=== PATIENT | male | born 1980 | race Hispanic/Latino ===

== ENCOUNTER 2022-01-27 08:03 | Emergency (ER) | payer OTHER ==
[~2022-01-27] VITALS: Ht 167.6 cm; Wt 77.1 kg
[2022-01-27 08:29] VITALS: BP 112/74
[2022-01-27 08:52] LABS: APPEARANCE,URINE Clear (CLEAR); BILIRUBIN,URINE Negative (NEGATIVE); COLOR,URINE Yellow (YELLOW); GLUCOSE, URINE (UA) Negative (NEGATIVE); KETONES,URINE Negative (NEGATIVE); LEUKOCYTE ESTERASE ,URINE Negative (NEGATIVE); NITRATE,URINE Negative (NEGATIVE); OCCULT BLOOD,URINE Negative (NEGATIVE); PROTEIN,URINE Negative (NEGATIVE); UROBILINOGEN,URINE 0.2 mg/dL (0.2-1.0)
[2022-01-27 09:03] LABS: AMPHET/METH SCREEN,URINE NEGATIVE (NEGATIVE); BARBITURATE SCREEN, URINE NEGATIVE (NEGATIVE); BENZODIAZEPINES SCREEN,URINE NEGATIVE (NEGATIVE); CANNABINOID SCREEN,URINE NEGATIVE (NEGATIVE); COCAINE SCREEN,URINE NEGATIVE (NEGATIVE); OPIATE SCREEN,URINE NEGATIVE (NEGATIVE); PHENCYCLIDINE SCREEN,URINE NEGATIVE (NEGATIVE)
== END 2022-01-27 08:42 | disposition home or self-care (01) ==
LOC: EDH 08:03
DX: F41.9 Anxiety disorder, unspecified (principal)
CPT/HCPCS: 80305; 81003

== ENCOUNTER 2024-08-12 09:55 | Observation (INO) | payer OTHER ==
[2024-08-10 14:34] LABS: BASOPHILS # (AUTO) 0.13 K/uL (0.00-0.20); BASOPHILS % (AUTO) 1.1 % (0.0-5.0); EOSINOPHILS % (AUTO) 2.6 % (0.0-8.0); HEMATOCRIT 48.9 % (42-54); IMMATURE GRANULOCYTE ABSOLUTE 0.11 K/uL (0-1); LYMPHOCYTES # (AUTO) 3.1 K/uL (1.0-4.8); LYMPHOCYTES % (AUTO) 27.2 % (21.0-51.0); MEAN CORPUSCULAR HEMOGLOBIN 29.7 pg (27.0-33.0); MEAN CORPUSCULAR HGB CONC 32.5 g/dL (32.0-36.0); MEAN CORPUSCULAR VOLUME 91.4 fL (79-99); MONOCYTES % (AUTO) 8.8 % (3.0-13.0); NEUTROPHILS # (AUTO) 6.8 K/uL (1.8-7.7); NEUTROPHILS % (AUTO) 59.3 % (40.0-77.0); PLATELET COUNT (AUTO) 173 K/uL (130-400); RED BLOOD CELL COUNT(AUTO) 5.35 MIL/uL (4.50-6.20); RED CELL DISTRIBUTION WIDTH 14.5 % (11.0-15.5); WHITE BLOOD COUNT (AUTO) 11.4 K/uL (4.8-10.8)
[2024-08-10 14:44] LABS: CREATININE 1.1 mg/dL (0.5-1.3); POTASSIUM 4.2 mmol/L (3.5-5.1)
[2024-08-10 14:51] VITALS: BP_SYST 110; PULSE 67; RESP 14; TEMP 97.9
--- NOTE | 2024-08-11 09:06 | NUR ---
REPORT REPORTED EKG TO DR TORRES. OK TO PROCEED
--- NOTE | 2024-08-11 12:08 | EKG ---
[facility] Test Date: 2024-08-10 Test Time: 15:18:09 Pat Name: LANG BLEVINS Department: [facility] Room: Gender: Male Residential Pest Control Technician: [id number] : 1980 Requested By: CRISTINA MARTINEZ Order Number: [id number] Reading MD: Lang Davis Measurements Intervals [place] Rate: 75 P: 59 NC: 145 QRS: -46 QRSD: 81 T: 26 QT: 392 QTc: 438 Interpretive Statements Sinus rhythm Left anterior fascicular block No previous ECG available for comparison Electronically Signed On 08-11-2024 18:10:30 TITLE SUPERVISOR by Lang Davis Please click the below link to view image of tracing.
--- NOTE | 2024-08-11 13:01 | NUR ---
report reported wbc to dominique/dr peña. ok to proceed
[2024-08-12] VITALS (26 sets, daily range): BP systolic 105–153; BP diastolic 67–92; PULSE 82–116; RESP 13–20; TEMP 97.5–98.2; O2SAT 99–100
[~2024-08-12] VITALS: Ht 166.4 cm; Wt 83.9 kg
[~2024-08-12 09:55] MED LIST: HYDR-3421 PO; OMEP40CA21 PO; bupropion PO; gabapentin PO
[2024-08-12] MEDS ORDERED: BUPR-49 PO (10:37)
[2024-08-12] MEDS ORDERED: GABA-529 PO ×2 (10:37)
[2024-08-12] MEDS: ceFAZolin SODIUM 2 GM VIAL ONE (10:39)
[2024-08-12] MEDS: LACTATED RINGERS 1000ML 1,000 ML IV ONE (10:39)
[2024-08-12] MEDS ORDERED: MIDAZOLAM HCL 1 MG/ML 2ML VIAL ONE (12:03)
[2024-08-12] MEDS ORDERED: dexaMETHasone SOD PHOSPHATE 4 MG/ML 1ML VIAL ONE (12:04)
[2024-08-12] MEDS ORDERED: LIDOCAINE PF 100MG/5ML (2%) SYRINGE 5ML ONE (12:04)
[2024-08-12] MEDS ORDERED: rocuRONium bROMide 10MG/1ML 5ML VL ONE ×2 (12:04→13:56)
[2024-08-12] MEDS ORDERED: proPOFol 10 MG/ML 20ML VIAL IV ONE (12:04)
[2024-08-12] MEDS ORDERED: FENTanyl CITRate PF 50 MCG/1 ML 2ML VIAL ONE ×2 (12:04→14:32)
[2024-08-12] MEDS ORDERED: ondanSETRON 4MG INJ ONE (12:04)
[2024-08-12] MEDS: ceFAZolin SODIUM 2 GM VIAL IVPB ONE (13:30)
[2024-08-12] MEDS ORDERED: ePHEDrine SULFate 50 MG/ML AMPULE ONE (13:52)
[2024-08-12] MEDS: MEPERIDINE-PF 25 MG/ML SYG ONE (16:44)
[2024-08-12] MEDS: IpraTROPium/alBUTERol SULFATE 3 ML SOLUTION IH ONE (16:47)
[2024-08-12] MEDS ORDERED: PROCHLORPERAZINE 10MG/2ML INJ IV PRN (17:00)
[2024-08-12] MEDS ORDERED: hydroMORPHone 0.5 MG SYG (0.5MG/0.5ML) IVP PRN (17:00)
[2024-08-12] MEDS ORDERED: ondanSETRON 4MG INJ IVP PRN (17:00)
[2024-08-12] MEDS ORDERED: GABApentin 100 MG CAPSULE PO PRN (17:00)
--- NOTE | 2024-08-12 17:08 | OP ---
Operative Note: DATE OF PROCEDURE: 08/12/24 SURGEON: CRISTINA MARTINEZ MD STITCHER SET UP OPERATOR AUTOMATIC: [Please review operative record] ANESTHESIA: [General and local] ANESTHESIOLOGIST/COLLATOR OPERATOR: [Please review operative record] PREOPERATIVE DIAGNOSIS: [Diaphragmatic hernia] POSTOPERATIVE DIAGNOSIS: [6 cm diaphragmatic hernia containing incarcerated cardia and fundus of the stomach] SYNOPSIS: [6 cm diaphragmatic hernia containing incarcerated cardia fundus of the stomach, successfully reduced. Hernia primarily repaired. Reinforced with Phasix mesh. Anterior fundoplication. EGD with no air leak, successful reduction of hiatal hernia, wrapped intact.] PROCEDURE: [Robotic assisted laparoscopic hiatal hernia repair, mesh reinforcement, anterior partial fundoplication. Intraoperative EGD] ESTIMATED BLOOD LOSS: [30 cc] INDICATIONS: [Patient is a 44-year-old male with chronic heartburn. Found to have esophagitis and a moderate-size hiatal hernia on EGD. Patient unable to be weaned of PPIs. Surgical recommendation was given for higher hernia repair with fundoplication. Risks, benefits, alternatives were discussed with the patient. All questions were answered. Patient agreed to proceed with surgery.] DESCRIPTION OF PROCEDURE: [After appropriate consent was obtained, the patient was transferred to the operating room and placed in supine position on the operating table. SCDs were placed, preop antibiotics were given. Patient underwent induction of general anesthesia, endotracheal intubation. Patient was then prepped and draped in usual sterile fashion. Time-out was performed. Through a left subcostal incision, Veress needle was inserted into the peritoneal cavity. Insufflation was allowed to 12 mmHg. Through an 8 mm supraumbilical incision, 8 mm trocar and laparoscope were inserted into the peritoneal cavity using Optiview. Rest of my trocars were all placed under direct visualization. Patient was positioned in the reverse Trendelenburg at 20. Through a 5 mm incision, Tony liver retractor was placed in order to retract the left lobe of the liver anteriorly. The Abdifatah robot was docked. Upon evaluation of the diaphragmatic hiatus, there was a large diaphragmatic defect, measuring 6 cm in containing incarcerated cardia and fundus. We 1st reduced the contents by gently pooling. A few adhesive bands were divided using vessel sealer. Once fully reduce, we then focused on the diaphragmatic repair. Our dissection began by incising the peritoneum around the hiatal orifice in a avascular plane. This was performed using the vessel sealer. The right devante was identified and a plane was developed between the right devante in the right esophageal wall. The dissection was accomplished with a combination of both blunt dissection and vessel sealer dissection. On the posterior aspect of the esophageal wall, the left devante was identified and this dissection was followed towards the left devante. A few short gastrics were divided in order to fully mobilize the fundus. Once the esophagus was fully mobilized, we focused in the intra mediastinal esophageal dissection. Again this was mostly accomplished mostly with blunt and very little vessel sealer dissection. We were able to get GE junction 3 cm below the diaphragmatic hiatus. We then passed our endoscope through the mouth into the esophagus and into the stomach. With the endoscope in place, we then proceeded to perform our cruroplasty. This was achieved by approximating the left and right devante in the posterior aspect of the esophagus using two 0 V lock nonabsorbable suture in a running fashion. We also performed a anterior crural plasty using also two 0 V lock nonabsorbable suture. At the end of the crural plasty, the stomach was assessed for the returned to the peritoneal cavity and only one instrument was able to maneuver into the hiatus. We reinforced the repair using a [address] mesh in a horseshoe shape. This mesh was sutured in place using 3-0 V lock absorbable suture in a running fashion in a couple of 2-0 silk interrupted sutures. At this time we focused on creating our anterior fundoplication. The fundus was grasped from the left side and moved to the right side anteriorly to the esophagus. It was sutured to the diaphragmatic wall using 2-0 silk suture in a running fashion. Endoscopy with insufflation revealed no air leak, no stenosis through the GE junction, appropriate reduction of the hiatal hernia. At this time are hiatal hernia repair was completed. The Abdifatah robot was undocked. Final inspection revealed adequate hemostasis, no concerns for leakage. The abdomen was deflated, all instruments were removed. Counts were correct at the end of the case. Skin incisions were closed with 4-0 Monocryl suture. Dermabond was applied over the incisions. Patient tolerated the procedure well] CRISTINA MARTINEZ MD Aug 12, 2024 17:08
[2024-08-12] MEDS: acetaMINOPHEN 100 ML ONE (18:24)
[2024-08-12] MEDS: SUGAMMADEX SODIUM 200 MG/2 ML VIAL IV ONE (18:24)
[2024-08-12] MEDS: ketOROlac 30MG VIAL (30MG/ML) IV SCH (18:41)
[2024-08-12] MEDS: LACTATED RINGERS 1000ML 1,000 ML IV SCH (18:42)
[2024-08-12] MEDS: FAMOTIDINE 20MG VIAL IV SCH (21:45)
[2024-08-12] MEDS: HYDROcod/acetaMINOPHEN 7.5/325 MG 15 ML UDCUP PO PRN (21:51)
[2024-08-13 04:00] VITALS: BP 124/86; PULSE 96; RESP 19; TEMP 98
[2024-08-13 08:00] VITALS: BP 132/70; PULSE 83; RESP 17; TEMP 98.4
[2024-08-13 08:20] VITALS: O2SAT 96
[2024-08-13] MEDS: ENOXAPARIN SODIUM 30 MG/0.3 ML SQ SCH (08:37)
[2024-08-13] MEDS: BUPROPION HCL 150 MG PO SCH (08:40)
--- NOTE | 2024-08-13 11:00 | NUR ---
[facility] CM MET WITH PT THIS MORNING ASSESSMENT DONE. PATIENT IS INDEPENDENT PRIOR TO SURGERY, LIVES AT HOME WITH HIS GIRLFRIEND BHARTI MARTINEZ AND HIS CHILDREN(19, 18, 11 Y/O). PT VERBALIZED HE HAS A BACK BRACE AND KNEE BRACES. DENIES ANY OTHER EQUIPMENT/SERVICES. USES [facility] FOR ALL HIS MEDS. FEELS SAFE TO GO BACK HOME, STILL DRIVE, GIRLFRIEND ABLE TO ASSIST WITH TRANSPORTATION AND NEEDS NECESSARY. DCP HOME ONCE STABLE. CM TO CONTINUE TO FOLLOW UP. Addendum: 08/13/24 at 1510 by ZENAIDA ODONNELL LVN Amended: Links added.
--- NOTE | 2024-08-13 11:30 | NUR ---
PT met with patient who is walking I in halls already and ND for bed mobility. Encouraged continued gait, addressed questions, No needs for PT eval. DC home when ready.
[2024-08-13 11:54] VITALS: BP 129/85; PULSE 74; RESP 17; TEMP 97.9
--- NOTE | 2024-08-13 12:01 | DS ---
Discharge Summary Assessment Assessment/plan: We will continue to monitor pain and treat as needed, continue GI/DVT prophylaxis and continue to encourage p.o. intake and ambulation. Diet, hydration, sleep hygiene and activity restrictions discussed in detail. All questions were answered. Plan is for discharge home today with outpatient follow up in 5-10 days, sooner if needed. Patient understands and agrees. Hospital Course Postop day one. Status post robot assisted hiatal hernia repair with Boris fundoplication. Patient awake, alert, oriented, walking around the nursing station in no acute distress. No significant complaints today. No pain. Tolerating p.o. intake and ambulating without difficulty. Ready for home today. Objective: Abdominal exam: Incisions clean, dry and intact, no erythema, no induration or signs of infection, appropriate tenderness to palpation Bilateral lower extremities: Painless ankle motion, compartments soft, SCDs in place Objective Vital Signs and I&O Vital Signs Date Time Temp Pulse Resp B/P (MAP) Pulse Ox O2 Delivery O2 Flow Rate FiO2 08/13/24 11:54 97.9 74 17 129/85 95 Room Air 0.0 08/13/24 08:20 21 Intake and Output 08/13/24 07:00 Intake Total 250.0 ml Balance 250.0 ml Intake IV Total 250.0 ml Assessment/Plan ASSESSMENT: [] PLAN: [] ALEXANDRA ODONNELL MD Aug 13, 2024 12:01
--- NOTE | 2024-08-13 12:13 | NUR ---
DISCHARGE DISCHARGE ORDERS OBTAINED FOR PATIENT TO BE DISCHARGED HOME. DISCHARGE INSTRUCTIONS AND DOCUMENTATION GIVEN TO PATIENT AT BEDSIDE. PATIENT VOICED UNDERSTANDING. IV DISCONTINUED, CATHETER INTACT, NO S/S OF INFECTION NOTED. PATIENT TOLERATED WELL. BANDS REMOVED. PATIENT WAITING FOR TRANSPORTATION.
--- NOTE | 2024-08-13 12:41 | NUR ---
DISCHARGE PATIENT LEFT VIA WHEELCHAIR, ACCOMPANIED BY SIGNIFICANT OTHER, NO S/S OF DISTRESS NOTED.
== END 2024-08-13 12:45 | disposition home or self-care (01) ==
LOC: DAH 09:55 → DAHIP 09:56 → INTOOBSV 09:56 → 4CH 17:20
PROVIDERS: ADMIT Surgery; ATTEND Surgery
DX: K44.9 Diaphragmatic hernia without obstruction or gangrene (principal); K20.90 Esophagitis, unspecified without bleeding; D13.0 Benign neoplasm of esophagus; K66.0 Peritoneal adhesions (postprocedural) (postinfection); F41.9 Anxiety disorder, unspecified; F32.A Depression, unspecified; K57.92 Diverticulitis of intestine, part unspecified, without perforation or abscess without bleeding; Z79.899 Other long term (current) drug therapy
CPT/HCPCS: 80048; 85025; 86850; 86900; 86901; 36415; 93005; 43282; 94640; 96374; 96375; 96376; 96372; J1100; A4663; J7120 ×2; A4215 ×2; J3490 ×5; J3010 ×2; J2003; J2250; J2704; J2405; J1885 ×3; J2175; J0690 ×2; C1781; A4930; A4213; A4222; A4221; A4216; J1650; A4223 ×2; A4600; 43235; G0378